=== PATIENT | male | born 1965 | race Caucasian/White ===

== ENCOUNTER 2020-06-01 03:54 | Emergency (ER) | payer BC, OTHER ==
[~2020-06-01 03:54] MED LIST: CLEOCIN 150MG150 MG PO; LOTRIMIN CREAM15 GM TP
[2020-06-01 04:41] LABS: HEMOGLOBIN 15.5 gm/dl (14.0-17.5); RED BLOOD COUNT 5.09 M/UL (4.20-5.50); WHITE BLOOD COUNT 7.8 K/UL (4.5-11.0)
[2020-06-01 04:58] LABS: BUN/CREATININE RATIO 26 (0-10)
[2020-06-01] MEDS ORDERED: ZOFRAN ODT 4 MG4 MG SL (05:33)
== END 2020-06-01 06:33 | disposition home or self-care (01) ==
LOC: ER1 03:54
PROVIDERS: Emergency Medicine
DX: F10.129 Alcohol abuse with intoxication, unspecified (principal); K85.20 Alcohol induced acute pancreatitis without necrosis or infection; I10 Essential (primary) hypertension; E11.9 Type 2 diabetes mellitus without complications; Y90.6 Blood alcohol level of 120-199 mg/100 ml; Z20.822 Contact with and (suspected) exposure to COVID-19
CPT/HCPCS: 71045; 80053; 82550; 82553; 82962; 83690; 83735; 83874; 83880; 84100; 84484; 85025; 85610; 85730; 93005; 96374; 99284; G0480; J2405; U0002

== ENCOUNTER 2020-09-18 15:01 | Emergency (ER) | payer BC, OTHER ==
[~2020-09-18 15:01] MED LIST changes: +ZOFRAN ODT 4 MG4 MG SL
== END 2020-09-18 17:29 | disposition home or self-care (01) ==
LOC: ER1 15:01
DX: Z71.1 Person with feared health complaint in whom no diagnosis is made (principal); J18.9 Pneumonia, unspecified organism; E11.9 Type 2 diabetes mellitus without complications; E78.5 Hyperlipidemia, unspecified; I10 Essential (primary) hypertension; Z79.82 Long term (current) use of aspirin; Z87.891 Personal history of nicotine dependence
CPT/HCPCS: 71046; 99283